=== PATIENT | female | born 1990 | race African-American/Black ===

== ENCOUNTER 2017-08-30 19:38 | Emergency (ER) | payer MEDICAID ==
[~2017-08-30] VITALS: Ht 170.2 cm; Wt 100.0 kg
[2017-08-31] MEDS ORDERED: LORAZEPAM 0.5MG TABLET PO ONE (01:30)
[2017-08-31 01:46] LABS: BASOPHILS % 0.6 % (0.0-2.0); EOSINOPHILS % 0.4 % (0.0-5.0); HEMATOCRIT. 34.2 % (36.0-48.0); LYMPHOCYTES % 28.6 % (20.0-50.0); MEAN CORPUSCULAR HEMOGLOBIN 24.5 pg (28.0-32.0); MEAN CORPUSCULAR VOLUME 75.9 fL (81.0-99.0); MEAN PLATELET VOLUME 7.8 fl (7.4-10.4); MONOCYTES % 9.1 % (2.0-8.0); NEUTROPHILS % 61.3 % (40.0-76.0); PLATELET 226 x1000/uL (130-400); RED BLOOD CELL COUNT 4.51 mill/uL (4.2-5.4); RED CELL DISTRIBUTION WIDTH 15.1 % (11.6-14.6)
[2017-08-31 02:26] LABS: CHLORIDE 104 mEq/L (98-107)
[2017-08-31 04:58] VITALS: BP 118/72
[2017-08-31 06:32] LABS: CLARITY URINE CLEAR (CLEAR); COLOR URINE YELLOW (YELLOW); KETONES URINE 2+ (NEGATIVE); LEUKOCYTE ESTERASE URINE NEGATIVE (NEGATIVE); NITRITE URINE NEGATIVE (NEGATIVE); OCCULT BLOOD URINE NEGATIVE (NEGATIVE); PH URINE 6.5 (4.5-8.0); PROTEIN URINE NEGATIVE (NEGATIVE); UROBILINOGEN URINE 0.2 E.U./dL (0.2-1.0)
[2017-08-31 07:23] LABS: METHADONE URINE SCREEN NEGATIVE (NEGATIVE); PHENCYCLIDINE URINE SCREEN NEGATIVE (NEGATIVE)
[2017-08-31 07:24] LABS: *AMPHETAMINES SCREEN URINE NEGATIVE (NEGATIVE); *BARBITURATES SCREEN URINE NEGATIVE (NEGATIVE); CANNABINOID URINE SCREEN NEGATIVE (NEGATIVE)
[2017-08-31 07:25] LABS: *BENZODIAZEPINES SCREEN URINE NEGATIVE (NEGATIVE); *COCAINE SCREEN URINE NEGATIVE (NEGATIVE)
[2017-08-31 07:26] LABS: OPIATES URINE SCREEN NEGATIVE (NEGATIVE)
== END 2017-08-31 07:13 | disposition home or self-care (01) ==
LOC: ER 19:38
DX: R42 Dizziness and giddiness (principal); R00.2 Palpitations; R20.0 Anesthesia of skin; F41.9 Anxiety disorder, unspecified; F17.200 Nicotine dependence, unspecified, uncomplicated; F12.10 Cannabis abuse, uncomplicated
CPT/HCPCS: 36415; 71045; 80048; 80305; 81003; 85025; 93005; 99285

== ENCOUNTER 2019-08-06 02:01 | Emergency (ER) | payer MEDICAID ==
[~2019-08-06] VITALS: Ht 167.6 cm; Wt 75.0 kg
[2019-08-06 04:00] VITALS: BP 129/89
== END 2019-08-06 04:01 | disposition home or self-care (01) ==
LOC: ER 02:01
DX: R07.89 Other chest pain (principal); R06.02 Shortness of breath; R05 Cough; F41.9 Anxiety disorder, unspecified
CPT/HCPCS: 71045; 81025; 99283